=== PATIENT | male | born 2000 | race Caucasian/White ===

== ENCOUNTER 2021-03-25 17:16 | Emergency (ER) | payer BC ==
[2021-03-25] MEDS ORDERED: Ibuprofen 800 MG TAB ONE (17:39)
[2021-03-26 22:47] LABS: SARS-CoV-2 PCR by NAA DETECTED (NotDetected)
== END 2021-03-25 17:43 | disposition home or self-care (01) ==
LOC: BURERS 17:16
DX: U07.1 COVID-19 (principal)
CPT/HCPCS: 99283; U0003; U0005